=== PATIENT | male | born 1985 | race American Indian/Alaskan Native ===

== ENCOUNTER 2016-12-15 20:02 | Inpatient (IN) | payer MEDICAID, OTHER ==
[2016-12-15 21:20] LABS: CHLORIDE,CL 104 mmol/L (101-111); SODIUM,NA 138 mmol/L (135-145)
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
[2016-12-15] MEDS: Sodium Chloride 0.9% 1,000 ML IV SCH (23:45)
[2016-12-15] MEDS: Levofloxacin/Dextrose 5%-Water 500 MG in Premix Bag 1 BAG IV SCH (23:46)
[2016-12-15] MEDS: Morphine 2 MG/ML Syringe IVPUSH PRN (23:47)
[2016-12-15] MEDS: Ibuprofen 400 MG Tab PO PRN (23:48)
--- NOTE | 2016-12-16 00:16 | HP ---
CHIEF COMPLAINT: Wound on the left lower leg. HISTORY OF PRESENT ILLNESS: The patient is a 31-year-old gentleman, who was admitted through the emergency room because of swelling and pain on the left lower leg and he mentioned that about 2 days ago, he has also noticed that the previous surgery site that he had opened up and he has also noted some redness and swelling and pain. He thinks that he might have stepped the wrong way and he might have scraped his left ankle and started all this. The patient denies though any chest pain, shortness of breath, abdominal pain, nausea, vomiting, nor any other complaints. PAST MEDICAL HISTORY: Remarkable for left ankle fracture and he had a surgery in June of 2016 and for which he had some hardware in his left ankle. He has also obesity, but denies any other medical problems. SOCIAL HISTORY: The patient is single. Occasionally, smokes cigarettes, drinks alcohol occasionally, and no illicit drug use. FAMILY HISTORY: Noncontributory. MEDICATION: Motrin. ALLERGIES: No known drug allergies. REVIEW OF SYSTEMS: As in HPI. The rest of the review of systems is negative. PHYSICAL EXAMINATION: General: The patient is alert and oriented, very pleasant, not in any acute distress. Vital Signs: Blood pressure is 142/85, pulse of 93, respirations 22, saturation is 97% on room air, and temperature is 99.6. HEENT: Normocephalic. There are pink palpebral conjunctivae. Sclerae anicteric. No JVD. No lymphadenopathy. Heart: Regular rate and rhythm. Normal S1 and S2. No gallops. No rubs. Lungs: Equal bilaterally. No crackles. No wheezing. Abdomen: Obese, soft, and nontender. Bowel sounds positive. Extremities: Remarkable for swelling and redness with an open wound on the lateral aspect of the left ankle with some serous drainage. LABORATORY DATA: CBC: WBC 16.7, hemoglobin is 14.8, hematocrit 44.9, platelet is 281, and neutrophils is 83.5. Comp panel: Glucose is 166, total protein is 8.4, albumin is 2.9. The rest of the panel unremarkable. ADMITTING DIAGNOSES: 1. Cellulitis/wound on the left ankle and left lower leg. 2. Obesity. 3. History of left ankle fracture with hardware on the left ankle. TREATMENT PLAN: The patient is going to be admitted to General Medicine floor. He will be empirically started on IV antibiotics that will be Levaquin and he will also be given vancomycin to cover MRSA. Wound culture will be sent as well as blood cultures. He will be on DVT prophylaxis and the rest of the management as necessary. The patient is a full code. I am also going to get limited bone scan on the left foot/left lower leg to rule out any signs of osteomyelitis. [facility] /[id number]
[2016-12-16] MEDS: Vancomycin 1.5 GM in Sodium Chloride 0.9% 500 ML IV SCH ×3 (01:27→17:15)
[2016-12-16] MEDS: Morphine 2 MG/ML Syringe IVPUSH PRN (05:35)
[2016-12-16 07:05] LABS: CHLORIDE,CL 103 mmol/L (101-111); SODIUM,NA 135 mmol/L (135-145)
[2016-12-16] MEDS: Docusate Sodium 100 MG Cap PO SCH ×2 (09:10→21:51)
[2016-12-16] MEDS: Enoxaparin 40 MG/0.4 ML Syringe SUBCUT SCH ×2 (09:10→21:52)
[2016-12-16] MEDS: Ibuprofen 400 MG Tab PO PRN (09:25)
[2016-12-16] MEDS: Acetaminophen/HYDROcodone 325-10 MG Tab PO PRN ×3 (09:26→20:32)
[2016-12-16] MEDS: Sodium Chloride 0.9% 1,000 ML IV SCH (13:13)
[2016-12-17] MEDS ORDERED: Levofloxacin/Dextrose 5%-Water 100 ML IV ONE (00:23)
[2016-12-17] MEDS: Levofloxacin/Dextrose 5%-Water 500 MG in Premix Bag 1 BAG IV SCH (00:39)
[2016-12-17] MEDS: Acetaminophen/HYDROcodone 325-10 MG Tab PO PRN ×5 (00:46→21:08)
[2016-12-17] MEDS: Vancomycin 1.5 GM in Sodium Chloride 0.9% 500 ML IV SCH ×3 (01:48→16:36)
[2016-12-17] MEDS: Sodium Chloride 0.9% 1,000 ML IV SCH (06:02)
--- NOTE | 2016-12-17 07:17 | PN ---
DATE: 12/16/2016 SUBJECTIVE: The patient is feeling little bit better this morning and he was able to sleep well last night. Still complained of some pain on the left ankle, but denies any other complaints. No chest pain, shortness of breath, abdominal pain, nausea, or vomiting. LABORATORY DATA: Lab workup this morning, CBC; WBC is 12, hemoglobin is 12.4, hematocrit 38. Chem 6, glucose is 129, calcium is 8.1. The rest of the panel unremarkable. PHYSICAL EXAMINATION: Vital Signs: Blood pressure is 134/80, pulse of 86, respirations 20, temperature of 99.8, and saturations 98% on room air. Heart: Regular rate and rhythm. Normal S1 and S2. No gallops. No rubs. Lungs: Equal bilaterally. No crackles. No wheezing. Abdomen: Obese, soft, and nontender. Extremities: Remarkable for the dressing on the left lower leg and foot. MEDICATIONS: Reviewed. PLAN: We will continue with IV antibiotics that is Levaquin and vancomycin. We will await the result of the wound culture and blood culture and he will be scheduled tomorrow for a limited bone scan of the left lower leg. [facility] /[id number]
[2016-12-17] MEDS: Enoxaparin 40 MG/0.4 ML Syringe SUBCUT SCH ×2 (10:32→21:07)
[2016-12-17] MEDS: Docusate Sodium 100 MG Cap PO SCH ×2 (10:33→21:06)
[2016-12-17] MEDS: Morphine 2 MG/ML Syringe IVPUSH PRN (16:45)
[2016-12-17] MEDS ORDERED: Iopamidol 612 MG/ML 100 ML Bottle IVPUSH ONE (17:01)
--- NOTE | 2016-12-17 20:40 | PCM.PN ---
- General Info Date of Service: 12/17/16 Admission Dx/Problem (Free Text): Patient is a 31 year old male was admitted because of cellulitis. started on Levaquin and Vancomycin. patient reports that he fell wrongly last week but did not noticed the wound that is already draining not until around 3 days ago. has been using Ibuprofen at home. denies history of non healing wound in the past. no personal history of diabetes. Subjective Update: patient reports that the area is slightly better since admission. he clearly denies any object that had injured the leg that has led to the open wound. he reports that he recovered well from his surgery last may. currently, he rates the pain to 6-7/10. Functional Status: Reports: tolerating diet - Patient Data Vitals - most recent: Last Vital Signs Temp 36.2 C 12/17/16 15:00 Pulse 86 12/17/16 15:00 Resp 20 12/17/16 15:00 BP 128/84 12/17/16 15:00 Pulse Ox 99 12/17/16 15:00 Weight - most recent: 151.953 kg I&O - last 24 hours: Intake & Output 12/17/16 12/17/16 12/17/16 06:59 14:59 22:59 Intake Total 2550 835 Output Total 1000 250 200 Balance 1550 585 -200 Lab Results last 24 hrs: Laboratory Results - last 24 hr 12/17/16 12/17/16 12/17/16 Range/Units 08:36 17:10 17:10 WBC 10.3 H (5.0-10.0) 10^3/uL RBC 3.96 L (4.6-6.2) 10^6/uL Hgb 12.3 L (14.0-18.0) g/dL Hct 37.6 L (40.0-54.0) % MCV 94.9 (80-100) fL MCH 31.1 (27.0-34.0) pg MCHC 32.7 L (33.0-35.0) g/dL Plt Count 298 (150-450) 10^3/uL Neut % (Auto) 75.4 H (42.2-75.2) % Lymph % (Auto) 9.5 L (20.5-50.1) % [place] % (Auto) 11.8 H (2-8) % Eos % (Auto) 2.8 (1.0-3.0) % Baso % (Auto) 0.5 (0.0-1.0) % ESR > 100 H (0-15) mm/hr Creatine Kinase 31 (26-174) IU/L C-Reactive Protein (0.0-1.3) mg/dL Vancomycin Trough 9.7 L (10-15) ug/ml 12/17/16 Range/Units 17:10 WBC (5.0-10.0) 10^3/uL RBC (4.6-6.2) 10^6/uL Hgb (14.0-18.0) g/dL Hct (40.0-54.0) % MCV (80-100) fL MCH (27.0-34.0) pg MCHC (33.0-35.0) g/dL Plt Count (150-450) 10^3/uL Neut % (Auto) (42.2-75.2) % Lymph % (Auto) (20.5-50.1) % [place] % (Auto) (2-8) % Eos % (Auto) (1.0-3.0) % Baso % (Auto) (0.0-1.0) % ESR (0-15) mm/hr Creatine Kinase (26-174) IU/L C-Reactive Protein > 20.0 H (0.0-1.3) mg/dL Vancomycin Trough (10-15) ug/ml Med Orders - Current: Current Medications Hydrocodone Bitart/Acetaminophen ([place] 325-10 Mg) 1 tab PO Q4H PRN PRN Reason: Pain (moderate 4-6) Last Admin: 12/17/16 15:14 Dose: 1 tab Docusate Sodium (Colace) 100 mg PO BID [facility] Last Admin: 12/17/16 10:33 Dose: 100 mg Enoxaparin Sodium (Lovenox) 40 mg SUBCUT Q12HR [facility] Last Admin: 12/17/16 10:32 Dose: 40 mg Sodium Chloride (Normal Saline) 1,000 mls @ 100 mls/hr IV ASDIRECTED [facility] Last Admin: 12/17/16 06:02 Dose: 100 mls/hr Levofloxacin/Dextrose 500 mg/ (Premix) 100 mls @ 100 mls/hr IV Q24H [facility] Last Admin: 12/17/16 00:39 Dose: 100 mls/hr Vancomycin HCl 1.5 gm/ Sodium (Chloride) 500 mls @ 333.333 mls/hr IV Q8H [facility] Last Admin: 12/17/16 16:36 Dose: Not Given Ibuprofen (Motrin) 400 mg PO Q6H PRN PRN Reason: Pain (mild 1-3) Last Admin: 12/16/16 09:25 Dose: 400 mg Morphine Sulfate (Morphine) 2 mg IVPUSH Q2H PRN PRN Reason: Pain (severe 7-10) Last Admin: 12/17/16 16:45 Dose: 2 mg Vancomycin HCl (Pharmacy To Dose - Vancomycin) 1 dose .XX ASDIRECTED [facility] Discontinued Medications Levofloxacin/Dextrose (Levaquin In D5w 500 Mg/100 Ml) Confirm Administered Dose 100 mls @ as directed IV .STK-MED ONE Stop: 12/17/16 00:24 Last Admin: 12/17/16 00:34 Dose: Not Given Iopamidol (Isovue-300 (61%)) 100 ml IVPUSH ONETIME ONE Stop: 12/17/16 17:02 Last Admin: 12/17/16 18:10 Dose: Not Given Vancomycin HCl (Pharmacy To Dose - Vancomycin) 1 dose .XX ASDIRECTED [facility] - Exam Skin: other (three areas of ulcerated wound on the dorsal aspect of the foot, lateral, beneath ankle; the largest of the three has around 2cm in depth when probed by a Qtip, the middle has a depth of 1.8cm; surrounding areas with swelling but no crepitus) - Problem List Review Problem List Initiated/Reviewed/Updated: Yes - My Orders Last 24 Hours: My Active Orders 12/17/16 10:35 Consult to Physician [CONS] Routine 12/17/16 10:37 Notify Provider Consults [RC] ASDIRECTED - Plan Plan:: 1. cellulitis on the left leg - no constitutional symptoms - leukocytosis is better, check for ESR or CRP - lab informed wound culture showed growth of GPC - continue with wound dressing and to be changed daily - bone scan scheduled tomorrow - pain control
[2016-12-18] MEDS: Levofloxacin/Dextrose 5%-Water 500 MG in Premix Bag 1 BAG IV SCH (00:03)
[2016-12-18] MEDS: Acetaminophen/HYDROcodone 325-10 MG Tab PO PRN ×4 (01:05→17:44)
[2016-12-18] MEDS: Vancomycin 1.5 GM in Sodium Chloride 0.9% 500 ML IV SCH ×2 (01:09→08:22)
[2016-12-18] MEDS: Sodium Chloride 0.9% 1,000 ML IV SCH ×2 (01:10→16:17)
[2016-12-18] MEDS: Enoxaparin 40 MG/0.4 ML Syringe SUBCUT SCH (08:25)
[2016-12-18] MEDS: Docusate Sodium 100 MG Cap PO SCH (08:25)
--- NOTE | 2016-12-18 14:49 | NM ---
CLINICAL HISTORY: 31-year-old male with history of "trimalleolar fracture left ankle" May who had subsequent open orthopedic fixation "medial malleolar and distal left fibular fractures as well as diastases tibiofibular joint (soft tissue swelling and gas pockets)" reported on plain film exam 15 December 2016. Swollen, painful, red. Cellulitis? Osteomyelitis? SCAN TECHNIQUE: Three-phase radionuclide exam both ankles obtained Nuclear Medicine Department [facility] during and after the intravenous administration of 21.9 mCi technetium 99m MDP. All data recorded in the PACS system for storage and study. INTERPRETATION: Abnormal. 1. Asymmetric extensive soft tissue swelling left lower extremity with increased blood flow document ed on dynamic imaging. 2. *Large area of intensely "hot" isotope activity appears to involve both distal left tibia and fib enrico on static and delayed images. (No corresponding plain film evidence of "osteomyelitis" appreciat ed in this region on plain films 15 December 2016, 3 days ago) 3. Subtle increased juxta-articular isotope activity contralateral asymptomatic right ankle characte ristic of arthritis. CONCLUSION: Abnormal radionuclide bone scan scintigraphically suspicious for extensive cellulitis an d possible underlying osteomyelitis, distal left tibia and fibula. CT exam (despite orthopedic hardw are) may prove helpful.
[2016-12-18 16:15] VITALS: BP 143/97
--- NOTE | 2017-02-07 16:44 | DISCH ---
FINAL DIAGNOSIS: Osteomyelitis. BRIEF HISTORY AND PHYSICAL EXAMINATION: The patient is a 31-year-old male, who was admitted here because of cellulitis, initially noted 3 prior to admission when the wound was draining. He denies history of diabetes in the past. The patient had a surgery done on the left leg last May. PHYSICAL EXAMINATION: VITAL SIGNS: On admission, blood pressure 142/85, heart rate of 93 beats per minute, respirations 22 breaths per minute, and oxygen saturation 97%. Documented physical exam on the admission showed swelling and redness on the open wound on the lateral aspect of the left ankle with serous drainage. LABORATORY DATA: Workup done in the hospital. Left ankle wound culture showed Staphylococcus aureus and group A Streptococcus. Blood culture showed no growth after 5 days. The latest WBC was 10.3 from 16.7, and latest hemoglobin is 12.3, ESR is more than 100, and CK is 31, CRP is more than 20. HOSPITAL COURSE: The patient was admitted to medical-surgical bed. He was started on IV antibiotics, IV Levaquin, and vancomycin to cover MRSA; DVT prophylaxis was started. Bone scan was scheduled and showed osteomyelitis. The patient was then transferred to [place] for further evaluation and might need to be seen by Infectious Disease and Orthopedics. PHYSICAL EXAMINATION ON DISCHARGE: VITAL SIGNS: On discharge, 143/87, heart rate of 88 beats per minute, temperature 36.7, respirations 20 breaths per minute, and oxygen saturation 100%. The patient was transported to [place] and sign out was given to the on-call hospitalist. [facility] /[id number] ASHLEY
== END 2016-12-18 17:45 | DRG 603 ==
LOC: DL.ED 20:02 → UNDOADMIN 21:32 → DL.MS 21:32
PROVIDERS: ADMIT Internal Medicine; ATTEND Internal Medicine
DX: L03.116 Cellulitis of left lower limb (principal); Z68.42 Body mass index [BMI] 45.0-49.9, adult; E66.9 Obesity, unspecified; F17.210 Nicotine dependence, cigarettes, uncomplicated
CPT/HCPCS: 36415; 73610-LT; 78315; 80048; 80053; 80202; 82550; 83605; 85025; 85651; 86140; 87040; 87070; 87077; 87186; 99285; A9270-GY; A9503; J1650; J1956; J2270; J3370; J7030; J7040

== ENCOUNTER 2016-12-25 13:04 | Inpatient (IN) | payer MEDICAID, OTHER ==
[2016-12-25] MEDS ORDERED: Ibuprofen 400 MG Tab PO PRN (13:50)
[2016-12-25] MEDS ORDERED: Docusate Sodium 100 MG Cap PO PRN (13:53)
[2016-12-25] MEDS ORDERED: Zolpidem 5 MG Tab PO PRN (13:53)
[2016-12-25] MEDS ORDERED: Polyethylene Glycol 3350 Powder 17 GM Packet PO PRN (13:53)
[2016-12-25] MEDS ORDERED: Ondansetron 4 MG Tab.DIS PO PRN (13:53)
[2016-12-25] MEDS ORDERED: ceFAZolin 1 GM Vial IVPUSH SCH (14:00)
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
[2016-12-25] MEDS: ceFAZolin 2 GM in Premix Bag 1 BAG IV SCH ×2 (14:36→22:04)
[2016-12-25] MEDS: Heparin Sodium 5,000 Units/ML Vial SUBCUT SCH ×2 (14:36→22:05)
[2016-12-25] MEDS: Sodium Chloride 0.9% 10 ML Syringe FLUSH PRN (15:10)
[2016-12-25] MEDS: Acetaminophen/HYDROcodone 325-10 MG Tab PO PRN ×2 (15:17→21:02)
[2016-12-26] MEDS: Acetaminophen/HYDROcodone 325-10 MG Tab PO PRN ×3 (03:14→21:01)
[2016-12-26] MEDS: ceFAZolin 2 GM in Premix Bag 1 BAG IV SCH ×3 (06:04→21:01)
[2016-12-26] MEDS: Heparin Sodium 5,000 Units/ML Vial SUBCUT SCH ×3 (06:08→21:01)
[2016-12-26] MEDS: Sodium Chloride 0.9% 10 ML Syringe FLUSH PRN (13:44)
[2016-12-27] MEDS: ceFAZolin 2 GM in Premix Bag 1 BAG IV SCH ×3 (05:36→21:50)
[2016-12-27] MEDS: Heparin Sodium 5,000 Units/ML Vial SUBCUT SCH ×3 (05:36→21:44)
[2016-12-27] MEDS: Sodium Chloride 0.9% 10 ML Syringe FLUSH PRN ×2 (05:36→13:56)
[2016-12-27] MEDS: Acetaminophen/HYDROcodone 325-10 MG Tab PO PRN ×3 (08:54→21:43)
[2016-12-27] MEDS: Ibuprofen 400 MG Tab PO PRN (20:08)
[2016-12-28] MEDS: ceFAZolin 2 GM in Premix Bag 1 BAG IV SCH ×3 (05:56→22:08)
[2016-12-28] MEDS: Heparin Sodium 5,000 Units/ML Vial SUBCUT SCH ×3 (05:57→22:08)
[2016-12-28] MEDS: Acetaminophen/HYDROcodone 325-10 MG Tab PO PRN ×2 (09:57→20:38)
[2016-12-28] MEDS: Sodium Chloride 0.9% 10 ML Syringe FLUSH PRN (14:52)
[2016-12-28] MEDS: Ibuprofen 400 MG Tab PO PRN ×2 (15:05→22:57)
[2016-12-29] MEDS: Heparin Sodium 5,000 Units/ML Vial SUBCUT SCH ×3 (05:50→21:26)
[2016-12-29] MEDS: ceFAZolin 2 GM in Premix Bag 1 BAG IV SCH ×3 (05:50→21:27)
[2016-12-29] MEDS ORDERED: Alteplase 2 MG Vial IV ONE ×2 (12:00→15:00)
--- NOTE | 2016-12-29 13:58 | PN ---
DATE: 12/29/2016 HISTORY OF PRESENT ILLNESS: Mr. Ankush Rodriguez is a 31-year-old male with medical history significant for diet-controlled diabetes, and recently underwent open reduction and internal fixation in April of 2016 for his left ankle fracture, which got complicated with open wound and cellulitis with questionable osteomyelitis. At that time, the patient had to regrow surgical debridement of the wound and hardware removal and wound VAC placement. The wound was growing MSSA and also a group A Streptococcus and the patient is currently on IV cefazolin and currently on swing bed requiring prolonged IV antibiotic treatment and management of his wound VAC. For the last 24 hours, the patient denies any complaints of chest pain. No shortness of breath. No abdominal pain. No nausea. No vomiting. No diarrhea. Complains of mild pain at the left ankle site only 2-3/10 in intensity, aggravated on movement, relieved with pain medication, nonradiating type of pain, not associated with any nausea or vomiting. REVIEW OF SYSTEMS: Cardiovascular, respiratory, gastrointestinal, neurology, and constitutional were all evaluated. PHYSICAL EXAMINATION: Vital Signs: Temperature of 98.7, pulse of 64, blood pressure 121/74, respiratory rate of 20, saturating at 99%. General Appearance: The patient is well oriented to time, place, and person. Follows commands spontaneously. Cardiovascular System: S1, S2 heard with normal intensity. No gallops. Respiratory: Clear to auscultation bilaterally. No wheeze. No crepitations. Abdomen: Soft. Bowel sounds positive. Nontender. No rigidity. Extremities: Wound VAC noted to the left lower extremity. Dressing noted on the left lower extremity. No edema. Neurology: No gross focal neurological deficit. MEDICATIONS: Reviewed. Continue with: 1. Coleman 325/10 mg 1 tablet every 6 hours as needed for pain. 2. Cefazolin 2 g IV every 8 hourly. 3. Docusate sodium 100 mg twice a day as needed. 4. Heparin 5000 subcutaneous every 8 hourly. 5. Ibuprofen 400 mg every 6 hours as needed for pain. 6. Ambien 5 mg at bedtime as needed for sleep. LABS: Glucose of 117. ASSESSMENT: 1. Cellulitis with possible osteomyelitis of the left ankle. 2. Diet-controlled diabetes. 3. Ongoing pain. PLAN: 1. Cellulitis and osteomyelitis. The patient is currently on IV cefazolin every 8 hourly. Continue the same. Follow with ID recommendation. Continue with wound VAC and wound cares. He would need IV cefazolin for a total of 6 weeks. 2. Diet controlled diabetes. The patient will be placed on consistent carbohydrate diet. We will check his blood sugars twice a day. We will get a hemoglobin A1c as the patient claims that he did not have diabetes in the past. 3. Pain control. Continue with Coleman and Motrin for pain control. 4. DVT prophylaxis. Continue with heparin for DVT prophylaxis. 5. I encouraged the patient to ambulate. [facility] /[id number]
[2016-12-29] MEDS: Sodium Chloride 0.9% 10 ML Syringe FLUSH PRN ×3 (14:07→22:04)
[2016-12-29] MEDS: Acetaminophen/HYDROcodone 325-10 MG Tab PO PRN ×2 (14:07→21:24)
[2016-12-29] MEDS: Ibuprofen 400 MG Tab PO PRN (21:38)
[2016-12-30] MEDS: Heparin Sodium 5,000 Units/ML Vial SUBCUT SCH ×3 (05:41→22:18)
[2016-12-30] MEDS: Sodium Chloride 0.9% 10 ML Syringe FLUSH PRN ×6 (05:42→22:53)
[2016-12-30] MEDS: ceFAZolin 2 GM in Premix Bag 1 BAG IV SCH ×3 (05:42→22:18)
[2016-12-30] MEDS: Ibuprofen 400 MG Tab PO PRN ×3 (06:25→19:56)
[2016-12-30] MEDS: Acetaminophen/HYDROcodone 325-10 MG Tab PO PRN ×3 (06:26→19:58)
--- NOTE | 2016-12-30 13:49 | PN ---
DATE: 12/30/2016 SUBJECTIVE: Mr. Ankush Rodriguez is a 31-year-old male with a medical history significant for diet-controlled diabetes recently underwent open reduction and internal fixation in April 2016 to the left ankle, which got complicated with cellulitis and possible osteomyelitis requiring removal of the hardware and surgical debridement of the wound by Plastic Surgery. Post procedure, the patient has a wound VAC in place and the wound was growing MSSA and group A Streptococcus for which he is requiring IV cefazolin for a total of 6 weeks and admitted to the swing bed. For the last 24 hours, the patient was noted to have secretions around the wound area, noted to have pus secreting around the wound area under the Tegaderm lining, so we had to remove the wound VAC in place and examine the wound. The wound looks healthy without any gross abscess or necrotic tissue at this time. Discussed it detail with Dr. Odell Goel regarding dressing changes, and we will try to take the wound VAC now, clean the wound and then put a new dressing on the wound. The patient has a teleconference with Dr. Yu, Plastic Surgery from [place] and closely follow. Continue with IV cefazolin for now. We also obtained aerobic and anaerobic cultures from the wound base. We will closely follow the wound cultures. [facility] /[id number]
[2016-12-31] MEDS: Heparin Sodium 5,000 Units/ML Vial SUBCUT SCH ×3 (05:47→22:05)
[2016-12-31] MEDS: Sodium Chloride 0.9% 10 ML Syringe FLUSH PRN ×2 (05:47→06:24)
[2016-12-31] MEDS: ceFAZolin 2 GM in Premix Bag 1 BAG IV SCH ×3 (05:47→23:55)
[2016-12-31] MEDS: Ibuprofen 400 MG Tab PO PRN ×2 (05:57→14:32)
[2016-12-31] MEDS: Acetaminophen/HYDROcodone 325-10 MG Tab PO PRN ×2 (05:58→14:34)
[2017-01-01] MEDS: Heparin Sodium 5,000 Units/ML Vial SUBCUT SCH ×2 (05:57→15:00)
[2017-01-01] MEDS: Ibuprofen 400 MG Tab PO PRN (06:02)
[2017-01-01] MEDS: Acetaminophen/HYDROcodone 325-10 MG Tab PO PRN (06:03)
[2017-01-01] MEDS: ceFAZolin 2 GM in Premix Bag 1 BAG IV SCH ×2 (08:13→15:01)
--- NOTE | 2017-01-01 11:18 | PCM.DCSUM1 ---
Discharge Summary - Hospital Course Free Text/Narrative:: Swing bed discharge summary: 31-year-old gentleman who has a history of left ankle fracture in April 2016. The patient underwent ORIF of the fracture. About 3-4 weeks ago the patient mis- stepped. Subsequently noted an area of opening that developed into a cellulitis and skin breakdown. The patient was transferred to [facility] with concern of cellulitis and abscess, osteomyelitis. During the acute care hospitalization the patient underwent surgery with hardware removal. Due to the relatively large area of wound he had placement of Integra over a left lateral ankle wound by Dr. Yu and wound VAC was placed. Wound cultures grew MSSA and group a Streptococcus. The patient was seen by infectious disease specialist, and the 6 weeks of IV cefazolin treatment was suggested. The patient was seen by plastic surgeon yesterday at [facility] in [place] and wound VAC was removed yesterday. Your the plastic surgeon recommendations, he will now begin soft dressing changes every other day or more frequently if there is excessive drainage. He will follow up again with Dr. Yu next week. Patient had uneventful swing bed stay. Patient declined to stay in the swing bed for further IV treatment and he wants to go home and come back for his IV treatment as an outpatient He saw Dr. giles yesterday Per her notes: "1. Infected wound of left ankle with possibly osteomyelitis of left ankle. - H/o of ORIF on 06/11/16 (for pilon fracture) -History and findings are very concerning for osteomyelitis and infected hardware. -Wound cultures grew MSSA and group A strep. - S/p Excisional I&D L ankle 25x6cm, down to bone with 5x5cm tunneling skin and sub-Q fat, with hardware removal distal fibula on 12/19/16. Surgical cultures grew Staph aureus- MSSA. RECOMMENDATION -Continue IV cefazolin. -Plan to complete at least 6 weeks of IV antibiotics from 12/19/16. -iv site dressed and cleaned Can be seen telemedicine next week" - Discharge Data Discharge Date: 01/01/17 Discharge Disposition: Home, Self-Care 01 Condition: Good - Discharge Diagnosis/Problem(s) (1) Cellulitis SNOMED Code(s): 843464127 ICD Code: L03.90 - CELLULITIS, UNSPECIFIED Status: Acute Current Visit: No Qualifiers: Site of cellulitis: extremity Site of cellulitis of extremity: lower extremity Laterality: left Qualified Code(s): L03.116 - Cellulitis of left lower limb - Discharge Plan Home Medications: Home Meds RX: Hydrocodone/Acetaminophen [Hydrocodon-Acetaminophn 10-325] 1 tab PO Q6H PRN 12/25/16 [History] RX: traMADol [Ultram] 50 mg PO Q6H PRN 12/25/16 [History] RX: Ibuprofen [Motrin] 200 mg PO Q6H PRN #10 01/01/17 [Rx] RX: ceFAZolin [Ancef] 2 gm IV Q8H bag 01/01/17 [Rx] - Discharge Summary/Plan Comment DC Time >30 min.: Yes (34 minutes were spent discharging this patient) - General Info Date of Service: 01/01/17 Admission Dx/Problem (Free Text: Admission Diagnosis/Problem Admission Diagnosis/Problem Cellulitis Functional Status: Reports: pain controlled - Review of Systems General: Reports: No Symptoms HEENT: Reports: no symptoms Pulmonary: Reports: no symptoms Cardiovascular: Reports: No Symptoms Gastrointestinal: Reports: No symptoms Genitourinary: Reports: no symptoms Musculoskeletal: Reports: no symptoms Skin: Denies: cyanosis, jaundice, pallor Neurological: Reports: No Symptoms Psychiatric: Reports: no symptoms - Patient Data Vitals - Most Recent: Last Vital Signs Temp 36.9 C 01/01/17 08:53 Pulse 73 01/01/17 08:53 Resp 20 01/01/17 08:53 BP 130/54 L 01/01/17 08:53 Pulse Ox 98 01/01/17 08:53 Weight - Most Recent: 132.721 kg I&O - Last 24 hours: Intake & Output 12/31/16 01/01/17 01/01/17 22:59 06:59 14:59 Intake Total 55 Output Total 250 Balance 55 -250 Lab Results - Last 24 hrs: Laboratory Results - last 24 hr 12/30/16 12/31/16 01/01/17 Range/Units 05:40 17:08 07:50 POC Glucose 119 H 108 H (70-105) mg/dl Estimat Average Glucose 128 mg/dl Hemoglobin A1c 6.1 (4.4-6.3) % CAROL Results - Last 24 hrs: Microbiology 12/30/16 11:20 Wound Culture - Preliminary Calf, Left 12/30/16 12:00 Anaerobic Culture - Preliminary Leg, Left Med Orders - Current: Current Medications Hydrocodone Bitart/Acetaminophen ([place] 325-10 Mg) 1 tab PO Q6H PRN PRN Reason: Pain Last Admin: 01/01/17 06:03 Dose: 1 tab Docusate Sodium (Colace) 100 mg PO BID PRN PRN Reason: Constipation Heparin Sodium (Porcine) (Heparin Sodium) 5,000 units SUBCUT Q8HR [facility] Last Admin: 01/01/17 05:57 Dose: 5,000 units Cefazolin Sodium/Dextrose 2 gm (/ Premix) 50 mls @ 100 mls/hr IV Q8H [facility] Last Admin: 01/01/17 08:13 Dose: 100 mls/hr Ibuprofen (Motrin) 400 mg PO Q6H PRN PRN Reason: Pain Last Admin: 01/01/17 06:02 Dose: 400 mg Ondansetron HCl (Zofran Odt) 4 mg PO Q6H PRN PRN Reason: nausea, able to take PO Polyethylene Glycol (Miralax) 17 gm PO DAILY PRN PRN Reason: Constipation Sodium Chloride (Saline Flush) 10 ml FLUSH ASDIRECTED PRN PRN Reason: Keep Vein Open Last Admin: 12/31/16 06:24 Dose: 10 ml Zolpidem Tartrate (Ambien) 5 mg PO BEDTIME PRN PRN Reason: Sleep Discontinued Medications Alteplase, Recombinant (Cathflo Activase) 2 mg IV ONETIME ONE Stop: 12/29/16 12:01 Last Admin: 12/29/16 14:40 Dose: Not Given Alteplase, Recombinant (Cathflo Activase) 2 mg IV ONETIME ONE Stop: 12/29/16 15:01 Last Admin: 12/29/16 15:00 Dose: 2 mg Cefazolin Sodium/Dextrose 2 gm (/ Premix) 50 mls @ 100 mls/hr IV Q8H [facility] Last Admin: 12/31/16 14:19 Dose: 100 mls/hr Ibuprofen (Motrin) 200 mg PO Q6H PRN PRN Reason: Pain - Exam General: Reports: alert, oriented, cooperative, no acute distress. Denies: mild distress, moderate distress, severe distress, sedated, lethargic, obtunded HEENT: Reports: Pupils equal, Pupils reactive, EOMI, Mucous membr. moist/pink Neck: Reports: supple, trachea midline, no JVD Lungs: Reports: Clear to auscultation, Normal respiratory effort Cardiovascular: Reports: Regular Rate, Regular Rhythm Abdomen: Reports: bowel sounds present, soft, no tenderness, no distension (Male) Exam: Deferred Rectal (Males) Exam: Deferred Back Exam: Reports: Normal Inspection, Full Range of Motion Extremities: Reports: no edema, no clubbing, no cyanosis, no calf tenderness, other (Left lower extremity has clean/dry/intact dressing on it.) Neurological: Reports: no new focal deficit Psy/Mental Status: Reports: alert, normal affect, normal mood *Q Meaningful Use (DIS) - VTE *Q VTE Criteria *Q: - Stroke *Q Stroke Criteria *Q: - AMI *Q AMI Criteria *Q:
[2017-01-01 16:18] VITALS: BP 139/82
== END 2017-01-01 16:10 | disposition home or self-care (01) | DRG 638 ==
LOC: UNDOADMIN 13:04 → DL.MS 13:04
PROVIDERS: ADMIT Internal Medicine; ATTEND Internal Medicine
DX: E11.628 Type 2 diabetes mellitus with other skin complications (principal); L03.116 Cellulitis of left lower limb; M86.8X7 Other osteomyelitis, ankle and foot; E11.69 Type 2 diabetes mellitus with other specified complication; S82.892S Other fracture of left lower leg, sequela; B95.0 Streptococcus, group A, as the cause of diseases classified elsewhere; B95.61 Methicillin susceptible Staphylococcus aureus infection as the cause of diseases classified elsewhere; F17.210 Nicotine dependence, cigarettes, uncomplicated
CPT/HCPCS: 36415; 82565; 82962; 83036; 84460; 85025; 85651; 86140; 87070; 87075; 87077; 87186; A9270-GY; J0690; J1644; J2997; J7050

== ENCOUNTER 2017-09-28 14:50 | Emergency (ER) | payer OTHER, MEDICAID ==
[2017-09-28 15:22] VITALS: BP 128/83
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
== END 2017-09-28 17:00 | disposition home or self-care (01) ==
LOC: DL.ED 14:50
DX: S93.492A Sprain of other ligament of left ankle, initial encounter (principal); F17.210 Nicotine dependence, cigarettes, uncomplicated; X50.1XXA Overexertion from prolonged static or awkward postures, initial encounter
CPT/HCPCS: 73610-LT; 99283

== ENCOUNTER 2017-10-01 07:19 | Emergency (ER) | payer OTHER, MEDICAID ==
[2017-10-01 07:30] VITALS: BP 132/83
[2017-10-01] MEDS ORDERED: Sodium Chloride 0.9% 1,000 ML IV SCH (07:45)
[2017-10-01] MEDS ORDERED: HYDROmorphone 0.5 MG/0.5 ML Syringe IVPUSH ONE (07:49)
[2017-10-01] MEDS ORDERED: Ondansetron 4 MG/2 ML SDV IV ONE (07:49)
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
[2017-10-01 08:42] LABS: CHLORIDE,CL 104 mmol/L (101-111); SODIUM,NA 134 mmol/L (135-145)
[2017-10-01] MEDS ORDERED: Sodium Chloride 0.9% 1,000 ML IV ONE (09:22)
--- NOTE | 2017-10-01 09:49 | CR ---
Clinical history: 32-year-old male with erythema and swelling left ankle. History of old trauma. Interpretation: Abnormal. 1. Increased soft tissue swelling and ankle joint effusion since recent exam 28 September 2017. Acute new trauma? 2. Evidence of old healed fracture deformity distal diaphysis left fibula (exuberant callus) and 2 or thopedic screws extending through the medial malleolus in an oblique fashion into the distal left tib ia. Screw holes distal fibular axis and mid/distal tibia. Note: New collection of gas in the subcutaneous tissues over the lateral malleolus and extending june g the distal fibula. Infection? Iatrogenic intervention? No inflammatory periostitis or signs of osteomyelitis appreciated at this time. Close clinical correl ation please. 3. No acute new left ankle fracture or dislocation. CONCLUSION: Suspicious.
== END 2017-10-01 09:40 ==
LOC: DL.ED 07:19
DX: L02.416 Cutaneous abscess of left lower limb (principal); M86.672 Other chronic osteomyelitis, left ankle and foot; F17.210 Nicotine dependence, cigarettes, uncomplicated; Z79.899 Other long term (current) drug therapy
CPT/HCPCS: 36415; 73610; 80053; 83605; 85025; 87040; 87070; 87077; 96361; 96374; 96375; 99285; J1170; J2405; J7030

== ENCOUNTER 2017-11-01 20:35 | Emergency (ER) | payer MEDICAID, OTHER ==
[2017-11-01 21:03] VITALS: BP 132/72
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
== END 2017-11-01 21:34 | disposition home or self-care (01) ==
LOC: DL.ED 20:35
DX: Z48.00 Encounter for change or removal of nonsurgical wound dressing (principal); F17.210 Nicotine dependence, cigarettes, uncomplicated
CPT/HCPCS: 99282

== ENCOUNTER 2019-07-01 01:59 | Emergency (ER) | payer OTHER ==
[2019-07-01 02:18] VITALS: BP 153/94; PULSE 115
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
[2019-07-01] MEDS ORDERED: Doxycycline 100 MG Cap PO ONE (03:03)
[2019-07-01] MEDS ORDERED: Bacitracin Oint 1 GM U/D Packet TOP ONE (03:03)
[2019-07-01] MEDS ORDERED: Acetaminophen 325 MG Tab PO ONE (03:06)
== END 2019-07-01 03:23 ==
LOC: DL.ED 01:59
DX: M25.572 Pain in left ankle and joints of left foot (principal)
CPT/HCPCS: 73610-LT; 87070; 87077; 87186; 99284-25; A9270-GY

== ENCOUNTER 2019-07-08 01:55 | Emergency (ER) | payer OTHER ==
[2019-07-08 02:06] VITALS: BP 121/73; PULSE 90
[2019-07-08] MEDS ORDERED: cefTRIAXone 1 GM Vial IM ONE (03:01)
[2019-07-08] MEDS ORDERED: Acetaminophen 325 MG Tab PO ONE (03:13)
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
== END 2019-07-08 03:48 | disposition home or self-care (01) ==
LOC: DL.ED 01:55
DX: L03.116 Cellulitis of left lower limb (principal); F17.210 Nicotine dependence, cigarettes, uncomplicated; R73.03 Prediabetes
CPT/HCPCS: 96372; 99283; A9270; J0696

== ENCOUNTER 2021-06-10 15:06 | Emergency (ER) | payer MEDICAID, OTHER ==
[2021-06-10] MEDS ORDERED: Ondansetron 4 MG/2 ML SDV IVPUSH ONE (15:25)
[2021-06-10] MEDS ORDERED: HYDROmorphone 1 MG/ML Syringe IVPUSH ONE (15:25)
[2021-06-10] MEDS ORDERED: Iopamidol 612 MG/ML 100 ML Bottle IVPUSH ONE (15:29)
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
[2021-06-10 15:30] VITALS: BP 160/121; PULSE 114
--- NOTE | 2021-06-10 16:21 | CT ---
PROCEDURE INFORMATION: Exam: CT Left Lower Extremity With Contrast Exam date and time: 06/10/2021 3:40 PM Age: 36 years old Clinical indication: Other: HX tib/fib FX with osteo and delayed healing; Prior surgery; Additional info: Abscess to anterior leg; R/O osteo TECHNIQUE: Imaging protocol: CT of the Left lower extremity with intravenous contrast was performed. Radiation optimization: All CT scans at this facility use at least one of these dose optimization techniques: automated exposure control; mA and/or kV adjustment per patient size (includes targeted exams where dose is matched to clinical indication); or iterative reconstruction. Contrast material: [id number]; Contrast volume: 100 ml; Contrast route: INTRAVENOUS (IV); COMPARISON: CR Ankle Min 3V Lt 07/01/2019 2:24 AM FINDINGS: Bones/joints: Advanced degenerative changes of the tibiotalar joint and the fibula tibial joint. The fluid collection communicates with the anterior lateral tibia. There is a defect in the anterolateral tibia measuring 5 mm. Fluid collection is present in the intramedullary cavity of the distal tibia. There is no fracture. Degenerative changes of the subtalar joint. Cystic changes present in the distal fibula. Soft tissues: Soft tissue swelling/edema. Vascular clips present within the soft tissues. Fluid collection in the anterior distal soft tissues of the ankle measuring 6.3 by 4.0 x 2.2 cm. No air present within the soft tissues or within the bone. IMPRESSION: 1. Edema/cellulitis of the ankle. 2. Anterior soft tissue fluid collection consistent with abscess. 3. Cortical defect in the anterolateral tibia that communicates with the soft tissue fluid collection. Findings are suggestive of intra osseous abscess/osteomyelitis. 4. Cystic change in the distal fibula also may represent intraosseous abscess/osteomyelitis. 5. Consider follow-up MRI of the ankle with contrast.
[2021-06-10] MEDS ORDERED: Insulin Regular, Human 100 Units/ML 3 ML Vial IV ONE (16:24)
[2021-06-10] MEDS ORDERED: 50% Dextrose in Water 50 ML Syringe IVPUSH PRN (16:24)
[2021-06-10] MEDS ORDERED: Glucagon,Human Recombinant 1 MG Vial IM PRN (16:24)
[2021-06-10] MEDS ORDERED: Vancomycin 2 GM in Sodium Chloride 0.9% 500 ML IV ONE (16:33)
[2021-06-10 16:47] LABS: SODIUM,NA 130 mmol/L (136-145)
[2021-06-10 16:48] LABS: ANION GAP 17.1 mEq/L (7-13); CHLORIDE,CL 96 mmol/L (98-107)
[2021-06-10 16:53] LABS: HEMOGLOBIN A1C 11.3 % (<5.7)
[2021-06-10] MEDS ORDERED: Piperacillin/Tazobactam 3.375 GM in Sodium Chloride 0.9% 100 ML IV ONE (17:11)
== END 2021-06-10 17:43 ==
LOC: DL.ED 15:06
DX: A41.9 Sepsis, unspecified organism (principal); L03.116 Cellulitis of left lower limb; L02.416 Cutaneous abscess of left lower limb; E11.10 Type 2 diabetes mellitus with ketoacidosis without coma
CPT/HCPCS: 36415; 73701; 80053; 81003; 82009; 82947; 83036; 83605; 85025; 86140; 87040; 87070; 87077; 87186; 87635; 96365; 96375; 99285; J1170; J1815; J2405; J2543; J3370; J7040; Q9967; U0002